=== PATIENT | male | born 1975 | race Two or more races ===

== ENCOUNTER 2022-02-18 06:24 | Day surgery (SDC) | payer OTHER | END 2022-02-18 12:50 | disposition home or self-care (01) | LOC: AMB-ENDOS 06:24 → CIR.AMB 14:15 | PROVIDERS: ATTEND Surgery | DX: D12.3 Benign neoplasm of transverse colon (principal); K64.4 Residual hemorrhoidal skin tags; Z86.010 Personal history of colon polyps ==